=== PATIENT | female | born 1945 | race Caucasian/White ===

== ENCOUNTER 2019-10-28 06:43 | Day surgery (SDC) | payer BC, OTHER ==
[2019-10-13 16:58] VITALS: BMI 30.6
[~2019-10-28 06:43] MED LIST: BUPIVICAINE 0.25%/MORPH PF/KETOROLAC - 51ML DISP.SYRINGE IA ONE; CEFAZOLIN 2 GM in DEXTROSE 5%-WATER - 50 ML IVPB ONE; CELECOXIB 200 MG CAPSULE PO ONE; TRANEXAMIC ACID 1000 MG/10 ML VIAL IVPUSH ONE
[2019-10-28] MEDS ORDERED: BUPIVACAINE HCL/PF 0.5% (5 MG/ML) 30 ML VIAL IJ ONE (07:10)
[2019-10-28] MEDS ORDERED: MIDAZOLAM HCL 2 MG/2 ML SINGLE DOSE VIAL ONE ×2 (07:10→08:10)
[2019-10-28] MEDS ORDERED: PROPOFOL 20 ML ONE (07:24)
[2019-10-28] MEDS ORDERED: ONDANSETRON 4 MG/2 ML VIAL ONE (07:25)
[2019-10-28] MEDS ORDERED: ceFAZolin SODIUM 1 GM VIAL ONE ×2 (07:25→07:26)
[2019-10-28] MEDS ORDERED: THROMBIN (RECOMBINANT) 5,000 UNIT VIAL TP ONE (07:26)
[2019-10-28] MEDS ORDERED: BUPIVACAINE HCL/PF 0.5% (5MG/ML) 10 ML VIAL ONE (07:26)
[2019-10-28] MEDS ORDERED: clonazePAM 0.5 MG TABLET PO PRN (07:55)
[2019-10-28] MEDS ORDERED: ZOLPIDEM TARTRATE 5 MG TABLET PO PRN (07:55)
[2019-10-28] MEDS ORDERED: ONDANSETRON 4 MG/2 ML VIAL IVPUSH PRN ×2 (07:56→11:15)
[2019-10-28] MEDS ORDERED: MAG HYDROX/AL HYDROX/SIMETH 30 ML UNIT-DOSE CUP PO PRN (07:56)
--- NOTE | 2019-10-28 07:58 | HP ---
[facility]ellite [facility] - Chief Complaint Chief Complaint: left knee pain - Past Medical History Allergies/Adverse Reactions: Allergies Allergy/AdvReac Type Severity Reaction Status Date / Time No Known Drug Allergies Allergy Verified 10/13/19 16:18 - Current Medications Current Medications: Home Medications Medication Instructions Recorded Levothyroxine [Synthroid -] 137 mcg PO DAILY 02/18/14 Zolpidem Tartrate [Ambien] 10 mg PO HS PRN 02/18/14 clonazePAM [KlonoPIN] 1 mg PO PRN PRN 02/18/14 Acetaminophen [Tylenol] 325 mg PO PRN PRN 10/13/19 Satellite Physical Exam - Physical Examination Vital Signs: Vital Signs Period Temp Pulse Resp BP Sys/Kohler Pulse Ox Last 24 Hr 98.3 F 78 18 138/90 97 General Appearance: Well Nourished, Well Developed, Alert & Oriented x3 ENT: Clear Lung: Normal air movement Extremities: Other (left knee- + swelling, + ttp medially, dec rom, nvi, xrays show grade 4 medial compartment djd) Neurological: Intact, Alert, Oriented Satellite Impression/Plan - Impression/Plan Impression: left knee medial djd Operative Procedure: left medial ramya ukr Date to be Performed: 10/28/19
[2019-10-28] MEDS ORDERED: LACTATED RINGERS SOLUTION 1,000 ML IV SCH (08:00)
[2019-10-28] MEDS ORDERED: DEXMEDETOMIDINE HCL 200 MCG/2 ML IVPB ONE (08:07)
[2019-10-28] MEDS ORDERED: LIDOCAINE HCL/PF 2% SDV 5ML VIAL ONE (08:21)
[2019-10-28] MEDS ORDERED: BUPIVICAINE 0.25%/MORPH PF/KETOROLAC - 51ML DISP.SYRINGE IA ONE (09:01)
--- NOTE | 2019-10-28 09:57 | OP ---
Operative Note - Note: Operative Date: 10/28/19 (johnathon) Pre-Operative Diagnosis: left knee medial djd Operation: left medial ramya ukr Post-Operative Diagnosis: Same as Pre-op Surgeon: Jose Alejandro Platt Stove Bottom Worker: Simone Hernandez Anesthesiologist/BARREL COATER: Jono Victor Anesthesia: Spinal, Local Specimens Removed: bone fragments Estimated Blood Loss (mls): 50
[2019-10-28] MEDS ORDERED: LEVOTHYROXINE NA 125 MCG TABLET (FP) PO SCH (10:00)
[2019-10-28] MEDS ORDERED: oxyCODONE HCL 5 MG TABLET PO PRN (11:15)
[2019-10-28] MEDS ORDERED: PROMETHAZINE HCL 25 MG/1 ML VIAL IVPUSH PRN (11:15)
[2019-10-28] MEDS ORDERED: ACETAMINOPHEN 325 MG TABLET (FP) PO SCH (11:15)
[2019-10-28] MEDS: PANTOPRAZOLE 40 MG TABLET PO SCH (14:45)
[2019-10-28] MEDS: MULTIVITAMINS (DAILY MVI) TABLET (FP) PO SCH (14:45)
--- NOTE | 2019-10-28 15:22 | SPEC ---
DATE OF OPERATION: 10/28/2019 PREOPERATIVE DIAGNOSIS: Left knee, degenerative joint disease. POSTOPERATIVE DIAGNOSIS: Left knee, degenerative joint disease. PROCEDURE: Left medial unicompartmental knee replacement with robotic-assisted navigation (MAKOplasty). SURGICAL ATTENDING: Jose Alejandro Platt MD RN TELEPHONE TRIAGE: DIMAS Gant ANESTHESIA: Regional and spinal. CLOSURE: Medial SALMA components with a 3 tibia, 4 femur, 9 polyethylene; No. 1 Vicryl for fascia; 0 and 2-0, subcutaneous; 3-0 Monocryl subcuticular with skin glue for skin; 3-0 undyed Vicryl for pin sites. ESTIMATED BLOOD LOSS: Less than 100 mL. COMPLICATIONS: None. CONDITION: To recovery in stable condition. DESCRIPTION OF OPERATIVE PROCEDURE: Patient was taken to the operating room on October 28, 2019. Spinal and regional anesthesia was administered by the anesthesiologist. IV Kefzol and TXA were administered prophylactically prior to the case. A well-padded pneumatic tourniquet was placed on the left proximal thigh. The left lower extremity was prepped and draped in the usual sterile fashion. A 6- to 8-cm longitudinal incision over the medial side of the patella from mid patella to the tibial tubercle was incised and was deepened using Bovie cautery. An arthrotomy was then made just medial to the patellar tendon and the patella. Subperiosteal dissection was done on the anteromedial proximal tibia all the way back to the MCL. Partial fat pad excision was performed, exposing the medial compartment. Checkpoint was malleable at both the femur and the tibia. Using 2 stab incisions in the femur 1 handbreadth above the patella on the femur and 2 stab incisions 1 handbreadth below the tibial tubercle on the tibia, 2 threaded pins were drilled in parallel fashion from anterior to posterior, going through the proximal cortex and engaging the 2nd but not through the 2nd cortex. To these threaded pins were fastened navigation rays, 1 on the femur and 1 on the tibia. The knee was then registered with the navigation device with the center of the rotation of the hip, medial and lateral malleoli, and multiple points both on the femur and on the tibia. Excellent registration of less than 0.5 mm was obtained on both to ensure adequate registration. The navigation device ensured us to "pop the bubbles" both on the femur and the tibia and that was performed and passed registration. The knee was then thoroughly inspected to remove all osteophytes both on the femur and the tibia. Also, osteophytes on the trochlea and on the surface of the patella were removed as well. The knee was then stressed with valgus stress at 0, 30, 60, 90, and 120 degrees of flexion. This propagated a looseness/tightness graft. The virtual positions of the components were then optimized to ensure an excellent graft. The tracking also was optimized by manipulating the virtual position to ensure that the femoral component articulated with the central portion of the tibial component. The robot was then brought into the field and was registered. The robot was used to bur the bone on both the femur and the tibia as to the specifications of the components. The trial components were then applied on both the femur and the tibia with an appropriate polyethylene insert. The knee was taken through a range of motion and found to have full extension, full flexion, with excellent stability. Stressing the graft revealed an excellent looseness/tightness graft with the trial components in place. The trial components were removed. The knee was thoroughly irrigated with a copious amount of antibiotic irrigation. The real components were then cemented in using modern generation cement techniques with antibiotic cement and pressurization. After the cement was hardened, the knee was thoroughly inspected to remove out all excess cement. The real polyethylene insert was then clipped into place. Range of motion and stability were again assessed to be as they were with the trials. At this time, the pins and the checkpoints were removed. The knee was again thoroughly irrigated. The arthrotomy was closed with No. 1 Vicryl, 0 and 2-0 subcutaneous, and 3-0 Monocryl subcuticular with skin glue for the skin, 4-0 undyed Vicryl for the pin sites. Sterile pressure dressing was placed over the knee. Patient awakened from anesthesia and transferred to recovery in stable condition. No complications. Estimated blood loss negligible. X-rays postoperatively revealed excellent position of the components. Daniela [id number]
[2019-10-28] MEDS: CEFAZOLIN 2 GM/D5W 2 GM/50 ML ML IVPB SCH ×2 (15:27→23:27)
[2019-10-28] MEDS: ACETAMINOPHEN 325 MG TABLET (FP) PO SCH ×2 (18:49→23:27)
[2019-10-28] MEDS: oxyCODONE HCL 5 MG TABLET PO PRN (21:14)
[2019-10-28] MEDS: SENNOSIDES/DOCUSATE COMBO (SENNA PLUS) TABLET (UD) PO SCH (21:16)
[2019-10-29] MEDS ORDERED: LEVOTHYROXINE NA 25 MCG TABLET (FP) ONE (05:20)
[2019-10-29] MEDS ORDERED: LEVOTHYROXINE NA 112 MCG TABLET (FP) ONE (05:21)
[2019-10-29] MEDS: oxyCODONE HCL 5 MG TABLET PO PRN (06:00)
[2019-10-29] MEDS: ACETAMINOPHEN 325 MG TABLET (FP) PO SCH ×2 (06:23→13:20)
[2019-10-29] MEDS ORDERED: LEVOTHYROXINE 112 MCG, LEVOTHYROXINE 25 MCG PO SCH (07:00)
[2019-10-29] MEDS ORDERED: ASPIRIN 325 MG TABLET PO SCH (08:00)
[2019-10-29] MEDS: PANTOPRAZOLE 40 MG TABLET PO SCH (09:53)
[2019-10-29] MEDS: SENNOSIDES/DOCUSATE COMBO (SENNA PLUS) TABLET (UD) PO SCH (09:53)
[2019-10-29] MEDS: MULTIVITAMINS (DAILY MVI) TABLET (FP) PO SCH (09:53)
[2019-10-29 10:00] VITALS: BP 154/76; PULSE 89; TEMP 98
== END 2019-10-29 13:40 | disposition home health service (06) ==
LOC: FASUSAT 06:43 → FM/S 06:43 → FASUSAT 10-29 13:40
PROVIDERS: ATTEND Orthopaedic Surgery
PROC: 8E0YXBZ Computer Assisted Procedure of Lower Extremity (ICD-10-PCS; 2019-10-28)
PROC: 8E0Y0CZ Robotic Assisted Procedure of Lower Extremity, Open Approach (ICD-10-PCS; 2019-10-28)
PROC: 0SRD0L9 Replacement of Left Knee Joint with Medial Unicondylar Synthetic Substitute, Cemented, Open Approach (ICD-10-PCS; principal; 2019-10-28 08:38)
DX: M17.12 Unilateral primary osteoarthritis, left knee (principal)
CPT/HCPCS: 20985; 27446; C1776; S2900; 73560-TC-LT-FY; 94760; 97116-GP; 97163-GP